=== PATIENT | female | born 1980 | race Two or more races ===

== ENCOUNTER 2017-10-27 01:08 | Emergency (ER) | payer OTHER ==
[~2017-10-27] VITALS: Ht 142.2 cm; Wt 53.2 kg
[~2017-10-27 01:08] MED LIST: DOCU-131 PO; DOCU240C31 PO; HYDR-3240 PO; IBUP200T49 PO; OXYC-302 PO; PREN1TAB60 PO
[2017-10-27] MEDS ORDERED: ACETAMINOPHEN 325 MG TABLET PO ONE (03:00)
[2017-10-27 03:05] LABS: BASOPHILS # (AUTO) 0.06 x10^3/uL (0-0.1); BASOPHILS % (AUTO) 1 % (0-1); EOSINOPHILS # (AUTO) 0.19 x10^3/uL (0-0.4); EOSINOPHILS % (AUTO) 2 % (1-7); LYMPHOCYTES # (AUTO) 1.76 x10^3/uL (1-3.4); LYMPHOCYTES % (AUTO) 14 % (22-44); MD NO; MEAN CORPUSCULAR HEMOGLOBIN 30.6 pg (27.0-34.8); MEAN CORPUSCULAR HGB CONC 33.6 g/dL (32.4-35.8); MEAN CORPUSCULAR VOLUME 91.2 fL (80-100); MEAN PLATELET VOLUME 8.5 fL (7.4-10.4); MONOCYTES # (AUTO) 0.58 x10^3/uL (0.2-0.8); MONOCYTES % (AUTO) 5 % (2-9); NEUTROPHILS # (AUTO) 10.31 x10^3/uL (1.8-6.8); NEUTROPHILS % (AUTO) 80 % (42-75); PLATELET COUNT 295 x10^3/uL (130-400); RED BLOOD COUNT 4.29 x10^6/uL (3.82-5.3); RED CELL DISTRIBUTION WIDTH 12.7 % (9.6-15.2)
[2017-10-27 03:14] LABS: ANION GAP 3 mmol/L (5-15); CALCIUM 8.7 mg/dL (8.5-10.1); CHLORIDE 106 mmol/L (98-107); CREATININE 0.69 mg/dL (0.55-1.02)
[2017-10-27 03:15] LABS: ALBUMIN 3.7 g/dL (3.4-5.0)
[2017-10-27] MEDS ORDERED: ACETAMINOPHEN 325 MG TABLET ONE (03:24)
[2017-10-27 03:52] LABS: MICROSCOPIC INDICATED
[2017-10-27 03:53] LABS: CULTURE INDICATED? YES
[2017-10-27 05:42] VITALS: BP 102/56
== END 2017-10-27 05:48 | disposition home or self-care (01) ==
LOC: ED 05:34
DX: O03.9 Complete or unspecified spontaneous abortion without complication (principal); R82.99 Other abnormal findings in urine
CPT/HCPCS: 36415; 76801; 80048; 81001; 82040; 84702; 85025; 86901; 87086; 99285